=== PATIENT | male | born 1960 | race Caucasian/White ===

== ENCOUNTER 2016-10-24 13:06 | Emergency (ER) | payer OTHER ==
--- NOTE | 2016-10-24 14:01 | ED ORDER SUMMARY ---
..... Patient: MIKE MACIAS OrderSheet [facility] VisitID: [id number] [address] [place] [address] 56y, M Registration Date/Time: 10/24/2016 ORDER SHEET Weight: 74.8 kg (stated) Allergies: No Known Drug Allergy GENERAL ORDERS: MEDICATION ORDERS: Hydrocodone-APAP PO 5/325 mg (NOW, HIGH ALERT MEDICATION) (13:43 10/24/2016 Grover A.R.N.P.) (14:03 Shannan R.N.) IV FLUIDS: ORDER SHEET NOTES: [Electronically signed by Sandy Castellanos R.N. (14:32 10/24/2016)] [Electronically signed by Roxana MartellR.N.P. (15:02 10/24/2016)] [Electronically locked/signed by Sandy Castellanos R.N. (14:32 10/24/2016)]
--- NOTE | 2016-10-24 14:01 | ED CLINICAL REPORT ---
Clinical Report - Physicians/Mid Levels [facility] [address] [place] [place] [address] 10/24/2016 13:09 Patient: MIKE MACIAS Time Seen: 13:26; initial patient contact, initial documentation, patient care assumed. Arrived- By private vehicle. Historian- patient. HISTORY OF PRESENT ILLNESS Chief Complaint: SKIN RASH. This started about 2 weeks ago and is still present. Not itchy. It is described as painful and burning. It has been located on the left cheek and chin. No cause has been identified. (has appt tomorrow with pcp). Similar symptoms previously: None. Recent medical care: Not recently seen/assessed. REVIEW OF SYSTEMS No fever or difficulty breathing. All systems otherwise negative, except as recorded above. PAST HISTORY Negative. SOCIAL HISTORY Light tobacco smoker. Occasional alcohol use. History of weekly drug use: marijuana. Recently used drugs. No recent travel. Is a local resident. He lives with spouse. FAMILY HISTORY Negative. ADDITIONAL NOTES The nursing notes have been reviewed with agreement regarding the chief complaint, HPI, ROS, PMH and patient medications and allergies. PHYSICAL EXAM Vital Signs: 10/24/2016 13:17 BP: 170/107. HR: 107. RR: 17. O2 saturation: 100%. Temp: 97.6 F. Pain level now: 7/10. Have been reviewed as abnormal. Hypertensive. Tachycardic. Respiratory rate normal. Temperature normal. Oxygen saturation normal. Appearance: Alert. Oriented X3. No acute distress. Eyes: Pupils equal, round and reactive to light. Conjunctivae and eyelids normal. ENT: Ears normal. Nose normal. Pharynx normal. Neck: Neck supple. CVS: Normal heart rate and rhythm. Heart sounds normal. Respiratory: No respiratory distress. Breath sounds normal. Chest nontender. Skin: Skin warm and dry. Abnormal skin color. Rash present. Normal skin turgor. Moderate, well-demarcated, erythematous, tender, macular, vesicular skin rash with an erythematous base on the face- L side of face, ear, neck. Extremities: Normal external inspection. Extremities nontender. Neuro: Oriented X 3. No motor deficit. No sensory deficit. PROGRESS AND PROCEDURES Patient and spouse counseled in person regarding the patient's stable condition and diagnosis. Differential Diagnosis: Other possible considerations: shingles, scabies, dermatitis, fungus, cellulitis. Above considerations are based on history and physical exam. Differential diagnosis was discussed with patient and patient's spouse. Disposition: Discharged home in good and improved condition (14:00). Condition: good and stable. CLINICAL IMPRESSION 10/24/2016 14:04 BP: 168/100. HR: 99. RR: 17. O2 saturation: 98%. Pain level now: 810. Vital Signs: have been reviewed as abnormal and appear to be correct. Hypertensive. Heart rate normal. Respiratory rate normal. Oxygen saturation normal. Herpes zoster with otitis externa and postherpetic neuralgia. No keratitis. INSTRUCTIONS Warnings: GENERAL WARNINGS: Return or contact your physician immediately if your condition worsens or changes unexpectedly, if not improving as expected, or if other problems arise. Specifically return if problem worsens. Prescription Medications: [place] 5 mg / 325 mg tablets: take 1 to 2 orally every 6 hours as needed for pain. Dispense fifteen (15). No refills. Substitution is permissible. Acyclovir 800 mg: Take 1 orally every 4 hours (five times daily) for 10 days. No refill. Follow-up: Follow up with your doctor in two days even if well. Call for an appointment. Summary of care provided to patient. Screening today revealed the patient's blood pressure to be in the hypertensive range. The patient should follow up with a primary care provider for blood pressure management. Understanding of the discharge instructions verbalized by patient. (Electronically signed by Roxana Martell A.R.N.P. 10/24/2016 15:02)
--- NOTE | 2016-10-24 14:01 | ED ORDER SUMMARY ---
..... Patient: MIKE MACIAS OrderSheet [facility] VisitID: [id number] [address] [place] [address] 56y, M Registration Date/Time: 10/24/2016 ORDER SHEET Weight: 74.8 kg (stated) Allergies: No Known Drug Allergy GENERAL ORDERS: MEDICATION ORDERS: Hydrocodone-APAP PO 5/325 mg (NOW, HIGH ALERT MEDICATION) (13:43 10/24/2016 Grover A.R.N.P.) (14:03 Shannan R.N.) IV FLUIDS: ORDER SHEET NOTES: [Electronically signed by Sandy Castellanos R.N. (14:32 10/24/2016)] [Electronically signed by Roxana MartellR.N.P. (15:02 10/24/2016)] [Electronically locked/signed by Sandy Castellanos R.N. (14:32 10/24/2016)]
--- NOTE | 2016-10-24 14:01 | ED NURSING NOTES ---
Clinical Report - Nurses [facility] [address] [place] [address] 10/24/2016 13:09 Patient: MIKE MACIAS TRIAGE Triage time 1320 PM. Acuity: LEVEL 4. Chief Complaint: (Questionable shingles or staph-). Alert. No acute distress. SEPSIS SCREEN: Sepsis Screen. Negative (no infection suspected/documented). MEGGAN COMA SCORE: [place] Coma Scale: 15- eyes open spontaneously (4); best verbal response- oriented x 4 (5); best motor response- obeys commands (6). --13:29 Sandy Castellanos R.N. 13:17 10/24/16. BP: 170/107. HR: 107. RR: 17. O2 saturation: 100%. Temp: 97.6 F. Pain level now: 02/10. --13:29 Sandy Castellanos R.N. Weight: 74.8 kg stated. Height/Length: 68 inches Per Patient. BMI: 25.1. --13:18 Sandy Castellanos R.N. Medications BP MED . --14:30 Sandy Castellanos R.N. Simvastatin Oral. --14:31 Sandy Castellanos R.N. Tramadol HCL Oral. --14:31 Sandy Castellanos R.N. Allergies No Known Drug Allergy. --14:30 Sandy Castellanos R.N. Medication/allergy information source: the patient. --13:29 Sandy Castellanos R.N. History Arrived by private vehicle. Historian: patient. Accompanied by family. Primary physician (Dr. Zhen phillips). ( Pt states starting off with a flake behind left ear. Started about 2 weeks ago, has tried cleaning peroxide, hydrocortisone, benadryl, alcohol. Pt states it started to swell and spread, very itchy, noted to now have it by left eye and spreading to neck are "burning sensation" Went to the pharmacy and was told to come to the clinic to r/o staph or shingles. Pt does have an appointment with MD tomorrow). This is a new problem. (2 weeks). No fever, weakness, cough or difficulty breathing. Denies muscle aches. Treatment [employer]ER: (hydrogen peroxide). PAST MEDICAL HX: Immunizations: up-to-date. SOCIAL HX: Former smoker, end date 2015. Occasional alcohol use; consumes wine by the glass. Last drink was 7 days ago. History of drug use: marijuana. Recently used drugs today. No infectious disease exposure. ABUSE ASSESSMENT: No report of abuse. SELF HARM ASSESSMENT: A self harm assessment was performed. The patient answered "no" to the question "Do you have thoughts of harming or killing yourself?" and "Have you recently had thoughts about harming or killing others?". FALL RISK ASSESSMENT: Fall risk assessment completed. No fall risk identified. NUTRITIONAL RISK ASSESSMENT: The nutritional risk assessment revealed no deficiencies. FUNCTIONAL ASSESSMENT: Functional assessment: no impairments noted. LEARNING NEEDS ASSESSMENT: The learning needs assessment revealed no barriers. SKIN INTEGRITY ASSESSMENT: Skin integrity risk assessment completed. No skin integrity risk identified. --13:29 Sandy Castellanos R.N. PROBLEMS: Hypercholesterolemia. Hypertension. Back Pain. Arthritis. --14:31 Sandy Castellanos R.N. ADDITIONAL SURGERIES: Back Surgery. --14:31 Sandy Castellanos R.N. Interventions ID band on patient. --13:29 Sandy Castellanos R.N. PHYSICAL ASSESSMENT Ambulatory to room. GENERAL / NEURO / PSYCH: Alert. Oriented X 4. Appears in no acute distress. RESPIRATORY: Respirations not labored. Breath sounds within normal limits. CVS: Pulses within normal limits. SKIN: Skin is warm and dry. Normal skin turgor. --13:29 Sandy Castellanos R.N. NURSING PROGRESS NOTES The initial plan of care for this patient has been created This plan of care was discussed with the patient. Warming measures: blanket applied. Reassurance given. Two patient identifiers checked. Call light placed in reach. Side rails up x 1. Bed placed in lowest position. Brakes of bed on. --13:30 Sandy Castellanos R.N. 14:03 10/24/2016 Hydrocodone-APAP (Hydrocodone-Acetaminophen) PO 5/325 mg Tablets 1 tab given. Allergies verified, confirmed 5 rights and sedative warning given to the patient. --14:03 Sandy Castellanos R.N. Reassurance given. Two patient identifiers checked. Call light placed in reach. --14:04 Sandy Castellanos R.N. 14:03 10/24/16. BP: 168/100. HR: 99. RR: 17. O2 saturation: 98%. Pain level now: 03/13. --14:04 Sandy Castellanos R.N. 14:20 10/24/2016 Hydrocodone-APAP PO Response: no adverse reaction. --14:30 Sandy Castellanos R.N. DISPOSITION / DISCHARGE Departure time: 1423 PM. Condition at departure: improved and stable. The goals identified in the patient's plan of care were met. Reviewed warnings. Reviewed medication(s) side effects, precautions, dosing and course information. Prescription(s) given to the patient. Reviewed wound care instructions (for shingles). Activity restrictions (rest) reviewed. Patient and spouse verbalized understanding. Written instructions provided in Malay. No diet instructions. The patient was discharged by the nurse practitioner. He was discharged home and accompanied by spouse. He left the Emergency Department ambulatory and via private vehicle. Spouse driving. FALL RISK ASSESSMENT: Fall risk assessment completed. No fall risk identified. --14:30 Sandy Castellanos R.N. 14:28 10/24/16. BP: 168/100. HR: 87. RR: 15. O2 saturation: 100% on room air. Temp: 98.6 F (oral). Pain level now: 01/11. --14:30 Sandy Castellanos R.N. Locked/Released at 10/24/2016 14:32 by Sandy Castellanos R.N.
--- NOTE | 2016-10-24 15:02 | ED MAR SUMMARY ---
..... Medication Administration Record [address] [place] [address] Patient: MIKE MACIAS Visit ID: [id number] 56y, M Weight: 74.8 kg Height/Length: 68 in BMI: 25.1 ALLERGIES: No Known Drug Allergy Given 14:03 10/24/2016 Sandy Castellanos R.N. Medication Administered: HYDROCODONE-APAP [PO] (HYDROCODONE-ACETAMINOPHEN), Dose: 1 tab 5/325 mg Tablets PO. Medication Ordered: Hydrocodone-APAP PO 5/325 mg (NOW, HIGH ALERT MEDICATION).
--- NOTE | 2016-10-24 15:02 | ED MAR SUMMARY ---
..... Medication Administration Record [address] [place] [address] Patient: MIKE MACIAS Visit ID: [id number] 56y, M Weight: 74.8 kg Height/Length: 68 in BMI: 25.1 ALLERGIES: No Known Drug Allergy Given 14:03 10/24/2016 Sandy Castellanos R.N. Medication Administered: HYDROCODONE-APAP [PO] (HYDROCODONE-ACETAMINOPHEN), Dose: 1 tab 5/325 mg Tablets PO. Medication Ordered: Hydrocodone-APAP PO 5/325 mg (NOW, HIGH ALERT MEDICATION).
--- NOTE | 2016-10-24 15:02 | ED DISCHARGE INSTRUCTIONS ---
Patient: MIKE MACIAS General Instructions [facility] VisitID: [id number] [address] [place] [address] 56y, M Registration Date/Time: 10/24/2016 10/24/2016 14:04 BP: 168/100. HR: 99. RR: 17. O2 saturation: 98%. Pain level now: 8/10. Vital Signs: have been reviewed as abnormal and appear to be correct. Hypertensive. Heart rate normal. Respiratory rate normal. Oxygen saturation normal. Herpes zoster with otitis externa and postherpetic neuralgia. No keratitis. INSTRUCTIONS Warnings: GENERAL WARNINGS: Return or contact your physician immediately if your condition worsens or changes unexpectedly, if not improving as expected, or if other problems arise. Specifically return if problem worsens. Prescription Medications: [place] 5 mg / 325 mg tablets: take 1 to 2 orally every 6 hours as needed for pain. Dispense fifteen (15). No refills. Substitution is permissible. Acyclovir 800 mg: Take 1 orally every 4 hours (five times daily) for 10 days. No refill. Follow-up: Follow up with your doctor in two days even if well. Call for an appointment. Summary of care provided to patient. Screening today revealed the patient's blood pressure to be in the hypertensive range. The patient should follow up with a primary care provider for blood pressure management. Understanding of the discharge instructions verbalized by patient. ADDITIONAL INFORMATION Shingles Anyone who has had chicken pox may get shingles later in life. It is caused by the same virus that has remained dormant (asleep) in your body. Shingles usually occurs in adults over the age of 50 or those with lowered immunity (cancer treatment, prolonged steroid use, HIV or AIDS). It starts as a tingling patch of skin on one side of the body. During the first several days small painful blisters appear in this area. However, unlike chicken pox the rash does not spread to the rest of the body. The blister fluid contains the virus. Exposure to shingles cannot cause shingles. However, it can cause chicken pox in anyone who has never had chicken pox before. The contagious period ends when all blisters have crusted over (usually about two weeks after the illness begins). Scarring may occur where the blisters appear. Sometimes there is continued sensitivity and pain in the involved patch of skin for months after the infection (neuralgia). Persons older than 50 or those with a weakened immune system may be treated with antiviral medicines to reduce pain, shorten the illness and prevent neuralgia. Zostavax is a vaccine that can help prevent shingles or make it less painful. It is recommended for adults over the age of 60 who have had chicken pox in the past, but not shingles. Adults over 60 who have had neither chicken pox nor shingles can prevent both diseases with a Varicella vaccine. Home Care: You may use acetaminophen (Tylenol) or ibuprofen (Motrin, Advil) to control pain, unless another medicine was prescribed. [NOTE: If you have chronic liver or kidney disease or ever had a stomach ulcer or GI bleeding, talk with your doctor before using these medicines.] (Aspirin should never be used in anyone under 18 years of age who is ill with a fever. It may cause severe liver damage.) To relieve itching and pain, make a solution of cool water mixed with cornstarch, baking soda, Aveeno Oatmeal, or Domeboro powder (available without a prescription). Apply the solution as a compress to the area. This will soothe the skin. Calamine or Caladryl lotion may help. Oral Benadryl (diphenhydramine) is an antihistamine available at drug and grocery stores. Unless a prescription antihistamine was given, Benadryl may be used to reduce itching if large areas of the skin are involved. Use lower doses during the daytime and higher doses at bedtime since the drug may make you sleepy. [NOTE: Do not use Benadryl if you have glaucoma or if you are a man with trouble urinating due to an enlarged prostate.] Claritin (loratidine) is an antihistamine that causes less drowsiness and is a good alternative for daytime use. Wash skin with soap and water to keep rash free of infection. Trim fingernails to prevent scratching. Scratching the sores may leave scars. Stay home from work or school until all blisters have formed a crust and you are no longer contagious. Follow Up with your doctor or as directed by our staff if the above measures do not bring relief. GET PROMPT MEDICAL ATTENTION if any of the following occur: Headache or stiff neck Increasing drowsiness, confusion or bizarre behavior Cough with trouble breathing or fast breathing (over 25 breaths per minute) Pain, redness or swelling of a joint Fever of 100.4F (38C) or higher, or as directed by your healthcare provider Eye pain or changes in vision or sores that appear near the eye Signs of skin infection (yellow or white drainage from the sores, increasing redness or pain) Weakness or numbness of an arm or leg Difficulty speaking, swallowing or walking Seizure Hydrocodone Bitartrate, Acetaminophen Oral tablet What is this medicine? ACETAMINOPHEN; HYDROCODONE (a set a DIEGO manny fen; guillermina droe KOE done) is a pain reliever. It is used to treat mild to moderate pain. How should I use this medicine? Take this medicine by mouth. Swallow it with a full glass of water. Follow the directions on the prescription label. If the medicine upsets your stomach, take the medicine with food or milk. Do not take more than you are told to take. Talk to your cook station regarding the use of this medicine in children. This medicine is not approved for use in children. What side effects may I notice from receiving this medicine? Side effects that you should report to your doctor or health home care liaison as soon as possible: allergic reactions like skin rash, itching or hives, swelling of the face, lips, or tongue breathing problems confusion feeling faint or lightheaded, falls stomach pain yellowing of the eyes or skin Side effects that usually do not require medical attention (report to your doctor or health home care liaison if they continue or are bothersome): nausea, vomiting stomach upset What may interact with this medicine? alcohol antihistamines isoniazid medicines for depression, anxiety, or psychotic disturbances medicines for sleep muscle relaxants naltrexone narcotic medicines (opiates) for pain phenobarbital ritonavir tramadol What if I miss a dose? If you miss a dose, take it as soon as you can. If it is almost time for your next dose, take only that dose. Do not take double or extra doses. Where should I keep my medicine? Keep out of the reach of children. This medicine can be abused. Keep your medicine in a safe place to protect it from theft. Do not share this medicine with anyone. Selling or giving away this medicine is dangerous and against the law. Store at room temperature between 15 and 30 degrees C (59 and 86 degrees F). Protect from light. Keep container tightly closed. Throw away any unused medicine after the expiration date. Discard unused medicine and used packaging carefully. Pets and children can be harmed if they find used or lost packages. What should I tell my health care provider before I take this medicine? They need to know if you have any of these conditions: brain tumor Crohn's disease, inflammatory bowel disease, or ulcerative colitis drink more than 3 alcohol-containing drinks per day drug abuse or addiction head injury heart or circulation problems kidney disease or problems going to the bathroom liver disease lung disease, asthma, or breathing problems an unusual or allergic reaction to acetaminophen, hydrocodone, other opioid analgesics, other medicines, foods, dyes, or preservatives or trying to get breast-feeding What should I watch for while using this medicine? Tell your doctor or health home care liaison if your pain does not go away, if it gets worse, or if you have new or a different type of pain. You may develop tolerance to the medicine. Tolerance means that you will need a higher dose of the medicine for pain relief. Tolerance is normal and is expected if you take the medicine for a long time. Do not suddenly stop taking your medicine because you may develop a severe reaction. Your body becomes used to the medicine. This does NOT mean you are addicted. Addiction is a behavior related to getting and using a drug for a non-medical reason. If you have pain, you have a medical reason to take pain medicine. Your doctor will tell you how much medicine to take. If your doctor wants you to stop the medicine, the dose will be slowly lowered over time to avoid any side effects. You may get drowsy or dizzy when you first start taking the medicine or change doses. Do not drive, use machinery, or do anything that may be dangerous until you know how the medicine affects you. Stand or sit up slowly. There are different types of narcotic medicines (opiates) for pain. If you take more than one type at the same time, you may have more side effects. Give your health care provider a list of all medicines you use. Your doctor will tell you how much medicine to take. Do not take more medicine than directed. Call emergency for help if you have problems breathing. The medicine will cause constipation. Try to have a bowel movement at least every 2 to 3 days. If you do not have a bowel movement for 3 days, call your doctor or health home care liaison. Too much acetaminophen can be very dangerous. Do not take Tylenol (acetaminophen) or medicines that contain acetaminophen with this medicine. Many non-prescription medicines contain acetaminophen. Always read the labels carefully. Acyclovir Oral tablet What is this medicine? ACYCLOVIR (ay DORI kltheresa veer) is an antiviral medicine. It is used to treat or prevent infections caused by certain kinds of viruses. Examples of these infections include herpes and shingles. This medicine will not cure herpes. How should I use this medicine? Take this medicine by mouth with a glass of water. Follow the directions on the prescription label. You can take it with or without food. Take your medicine at regular intervals. Do not take your medicine more often than directed. Take all of your medicine as directed even if you think your are better. Do not skip doses or stop your medicine early. Talk to your cook station regarding the use of this medicine in children. While this drug may be prescribed for selected conditions, precautions do apply. What side effects may I notice from receiving this medicine? Side effects that you should report to your doctor or health home care liaison as soon as possible: allergic reactions like skin rash, itching or hives, swelling of the face, lips, or tongue chest pain confusion, hallucinations, tremor dark urine increased sensitivity to the sun redness, blistering, peeling or loosening of the skin, including inside the mouth seizures trouble passing urine or change in the amount of urine unusual bleeding or bruising, or pinpoint red spots on the skin unusually weak or tired yellowing of the eyes or skin Side effects that usually do not require medical attention (report to your doctor or health home care liaison if they continue or are bothersome): diarrhea fever headache nausea, vomiting stomach upset What may interact with this medicine? probenecid What if I miss a dose? If you miss a dose, take it as soon as you can. If it is almost time for your next dose, take only that dose. Do not take double or extra doses. Where should I keep my medicine? Keep out of the reach of children. Store at room temperature between 15 and 25 degrees C (59 and 77 degrees F). Throw away any unused medicine after the expiration date. What should I tell my health care provider before I take this medicine? They need to know if you have any of these conditions: kidney disease an unusual or allergic reaction to acyclovir, ganciclovir, valacyclovir, other medicines, foods, dyes, or preservatives or trying to get breast-feeding What should I watch for while using this medicine? Tell your doctor or health home care liaison if your symptoms do not improve. This medicine works best when started very early in the course of an infection. Begin treatment at the first signs of infection. Drink 6 to 8 glasses of water or fluids every day while you are taking this medicine. This will help prevent side effects. You can still pass chickenpox, shingles, or herpes to another person even while you are taking this medicine. Avoid contact with others as directed. Genital herpes is a sexually transmitted disease. Talk to your doctor about how to stop the spread of infection. You have been given the following additional information: Herpes Zoster Hydrocodone Bitartrate, Acetaminophen Oral tablet Acyclovir Oral tablet (Electronically signed by Roxana Martell A.R.N.P. 10/24/2016 15:02)
--- NOTE | 2016-10-24 15:02 | ED MED RECONCILIATION SUMMARY ---
Patient: MIKE MACIAS Medication Reconciliation Report [facility] VisitID: [id number] [address] [place] [address] 56y, M Registration Date/Time: 10/24/2016 Weight: 74.8 kg Height/Length: 68 in. BMI: 25.1 ALLERGIES: No Known Drug Allergy The patient's Home Medications are listed below: THE FOLLOWING MEDICATIONS NEED TO BE RECONCILED: BP MED Simvastatin Oral Tramadol HCL Oral The source(s) of the original Home Medication information: patient The following Medications were given to the patient in the Emergency Department: Hydrocodone-APAP [PO] PO 1 tab, administered: 10/24/2016 2:03:00 PM The following Medications were prescribed to the patient: [place] 5 mg / 325 mg tablets: take 1 to 2 orally every 6 hours as needed for pain. Dispense fifteen (15). No refills. Substitution is permissible. -- Roxana Martell, A.R.N.P. Acyclovir 800 mg: Take 1 orally every 4 hours (five times daily) for 10 days. No refill. -- Roxana Martell, Chetan.R.N.P.
--- NOTE | 2016-10-24 15:02 | ED MED RECONCILIATION SUMMARY ---
Patient: MIKE MACIAS Medication Reconciliation Report [facility] VisitID: [id number] [address] [place] [address] 56y, M Registration Date/Time: 10/24/2016 Weight: 74.8 kg Height/Length: 68 in. BMI: 25.1 ALLERGIES: No Known Drug Allergy The patient's Home Medications are listed below: THE FOLLOWING MEDICATIONS NEED TO BE RECONCILED: BP MED Simvastatin Oral Tramadol HCL Oral The source(s) of the original Home Medication information: patient The following Medications were given to the patient in the Emergency Department: Hydrocodone-APAP [PO] PO 1 tab, administered: 10/24/2016 2:03:00 PM The following Medications were prescribed to the patient: [place] 5 mg / 325 mg tablets: take 1 to 2 orally every 6 hours as needed for pain. Dispense fifteen (15). No refills. Substitution is permissible. -- Roxana Martell, A.R.N.P. Acyclovir 800 mg: Take 1 orally every 4 hours (five times daily) for 10 days. No refill. -- Roxana Martell, Chetan.R.N.P.
== END 2016-10-24 14:22 | disposition home or self-care (01) ==
LOC: ED SRH 13:06
DX: B02.8 Zoster with other complications (principal); B02.29 Other postherpetic nervous system involvement; F17.200 Nicotine dependence, unspecified, uncomplicated; Z79.899 Other long term (current) drug therapy